=== PATIENT | female | born 1930 | race Caucasian/White ===

== ENCOUNTER 2016-12-08 06:29 | Outpatient (CLI) | payer MEDICARE, BC | END 2016-12-08 06:30 | DX: N28.9 Disorder of kidney and ureter, unspecified (principal); D64.9 Anemia, unspecified ==

== ENCOUNTER 2017-01-04 13:56 | Outpatient (CLI) | payer MEDICARE, BC | END 2017-01-04 13:57 | disposition home or self-care (01) | DX: J44.1 Chronic obstructive pulmonary disease with (acute) exacerbation (principal) ==

== ENCOUNTER 2017-01-27 14:57 | Outpatient (CLI) | payer MEDICARE, BC ==
[2017-01-27 18:07] LABS: BILIRUBIN,TOTAL 0.3 mg/dL (0.2-1.0); CREATININE 1.5 mg/dL (0.4-1.0); POTASSIUM 4.2 mmol/L (3.5-5.0); TOTAL PROTEIN 7.8 g/dL (6.7-8.2)
== END 2017-01-27 14:58 | disposition home or self-care (01) ==
LOC: LAB.F 14:57
PROVIDERS: ATTEND Internal Medicine
DX: D50.9 Iron deficiency anemia, unspecified (principal)
CPT/HCPCS: 36415; 80053

== ENCOUNTER 2017-02-28 15:03 | Outpatient (CLI) | payer MEDICARE, BC | END 2017-02-28 23:59 | disposition EMS.NT | LOC: EMS 15:03 | PROVIDERS: ATTEND Surgery | DX: R07.9 Chest pain, unspecified (principal) ==

== ENCOUNTER 2017-03-05 15:08 | Outpatient (CLI) | payer MEDICARE, BC ==
[2017-03-05 17:32] LABS: HCT - HEMATOCRIT 39.6 % (37.0-47.0); HGB - HEMOGLOBIN 12.8 g/dL (12.0-16.0); MEAN CORPUSCULAR HEMOGLOBIN 27.6 pg (27.0-31.0); MEAN CORPUSCULAR HGB CONC 32.3 g/dL (32.0-36.0); MEAN CORPUSCULAR VOLUME 85.6 fL (81.0-99.0); MEAN PLATELET VOLUME 7.7 fL (7.9-10.8); RED BLOOD COUNT 4.63 10^6/uL (4.20-5.40); RED CELL DISTRIBUTION WIDTH 15.3 % (12.0-15.0); WHITE BLOOD COUNT 5.3 x10^3/uL (4.8-10.8)
[2017-03-05 20:16] LABS: CALCIUM 9.2 mg/dL (8.5-10.3); CREATININE 1.6 mg/dL (0.4-1.0); POTASSIUM 4.2 mmol/L (3.5-5.0)
== END 2017-03-05 15:09 | disposition home or self-care (01) ==
LOC: LAB.F 15:08
PROVIDERS: ATTEND Internal Medicine Nephrology
DX: N05.9 Unspecified nephritic syndrome with unspecified morphologic changes (principal); N25.81 Secondary hyperparathyroidism of renal origin; R80.9 Proteinuria, unspecified
CPT/HCPCS: 36415; 80048; 82570; 83970; 84100; 84156

== ENCOUNTER 2017-03-08 08:00 | Outpatient (CLI) | payer MEDICARE, BC | END 2017-03-08 08:01 | disposition home or self-care (01) | LOC: LAB.R 08:00 | PROVIDERS: ATTEND Internal Medicine Nephrology | DX: N05.9 Unspecified nephritic syndrome with unspecified morphologic changes (principal); D70.9 Neutropenia, unspecified; E83.30 Disorder of phosphorus metabolism, unspecified; N25.81 Secondary hyperparathyroidism of renal origin; R80.9 Proteinuria, unspecified | CPT/HCPCS: 82570; 84156 ==

== ENCOUNTER 2017-04-23 15:09 | Outpatient (CLI) | payer MEDICARE, BC ==
[2017-04-23 17:49] LABS: HEMOGLOBIN A1C 0.53 g/dL
[2017-04-23 18:50] LABS: FOLATE > 49.60 ng/mL (5.90 - >24.8)
== END 2017-04-23 15:10 | disposition home or self-care (01) ==
LOC: LAB.F 15:09
PROVIDERS: ATTEND Physician Assistant Medical
DX: D64.9 Anemia, unspecified (principal)
CPT/HCPCS: 36415; 82607; 82746; 83036

== ENCOUNTER 2017-05-15 10:34 | Outpatient (CLI) | payer MEDICARE, BC ==
--- NOTE | 2017-05-16 00:04 | XRAY Report ---
EXAM: CHEST RADIOGRAPHY EXAM DATE: 05/15/2017 11:11 AM. CLINICAL HISTORY: New-onset of cough 3 weeks ago. COMPARISON: 07/19/2014. CT 02/26/2016.. Chest x-ray 01/24/2016. TECHNIQUE: 2 views. FINDINGS: Lungs/Pleura: There is patchy right perihilar and left infrahilar airspace opacity. There is a conflu ent density in the right upper lobe. These densities are increased since previous. There curtain supervisor ural distortion in the right lung. Mediastinum: Heart size within normal limits. There is moderate aortic arch atherosclerotic calcifica tion. There is a new left-sided Port-A-Cath with tip at mid SVC. Other: None. IMPRESSION: 1. Bilateral patchy densities which are new since previous. Uncertain if these findings represent acu te pneumonia versus malignancy or sequela of malignancy treatment given the presence of Port-A-Cath. Follow-up recommended. RACHEL Referring Provider Line: [phone] SITE ID: [id number]
== END 2017-05-15 10:35 | disposition home or self-care (01) ==
LOC: DI 10:34
PROVIDERS: ATTEND Internal Medicine
DX: J98.4 Other disorders of lung (principal); Z95.828 Presence of other vascular implants and grafts
CPT/HCPCS: 71020

== ENCOUNTER 2017-06-08 10:59 | Outpatient (CLI) | payer MEDICARE, BC | END 2017-06-08 11:00 | disposition critical access hospital (66) | LOC: EMS 10:59 | PROVIDERS: ATTEND Surgery | DX: R06.02 Shortness of breath (principal); R07.9 Chest pain, unspecified | CPT/HCPCS: A0425; A0427 ==

== ENCOUNTER 2017-06-08 11:48 | Emergency (ER) | payer MEDICARE, BC ==
--- NOTE | 2017-06-08 12:44 | ED Physician Documentation ---
History of Present Illness - Stated complaint Stated Complaint: DIFF BREATHING - Chief complaint Chief Complaint: General - History obtained from History obtained from: Patient, Family (daughter) - History of Present Illness Timing: Other (This is an 86-year-old woman with history of COPD who wears oxygen as needed, 2 L, and also a history of lung cancer status post chemotherapy and radiation last year in [place]. Last night she became acutely short of breath, she does have a nonproductive cough and chest pressure anteriorly. There is no pedal edema or calf pain, the shortness of breath is present at rest. No fevers.) Review of Systems Ten Systems: 10 systems reviewed and negative Constitutional: denies: Fever, Chills Nose: denies: Rhinorrhea / runny nose, Congestion Cardiac: reports: Chest pain / pressure. 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 : Renal insuffiency Psych: Anxiety Musculoskeletal: Osteoporosis Derm: None - Past Surgical History Past Surgical History: Yes General: Appendectomy, Bowel surgery, Colonoscopy /SWEEPING COMPOUND BLENDER: Hysterectomy, Oophrectomy - Present Medications Home Medications: Ambulatory Orders Medication Instructions Recorded Confirmed Aspirin EC [Ecotrin] 81 mg PO DAILY 01/24/13 06/08/17 Cholecalciferol (Vitamin D3) 5,000 unit PO DAILY 07/31/13 06/08/17 [Vitamin D3] LORazepam [Ativan] 0.5 mg PO BID 07/31/13 06/08/17 Tiotropium [place] [Spiriva] 18 mcg IH DAILY 07/31/13 06/08/17 Gabapentin [Neurontin] 600 mg PO TID 12/20/13 06/08/17 Ipratropium/Albuterol [Duoneb] 3 ml NEB QID 07/06/14 06/08/17 HYDROcod/ACETAM 5/325 [[place] 5/325] 1 tab ORAL TID 07/09/14 06/08/17 Multivit-Min/FA/Lycopene/Lut 1 each PO DAILY 09/07/14 06/08/17 [Centrum Silver Tablet] Cyanocobalamin (Vitamin B-12) 1 tab PO DAILY 12/30/15 06/08/17 [Vitamin B12] Bimatoprost [Lumigan] 1 drops EACHEYE DAILY 06/08/17 06/08/17 Brimonidine Tartrate/Timolol 2 drops RIGHTEYE BID 06/08/17 06/08/17 [Combigan 0.2%-0.5% Eye Drops] Levofloxacin [Levaquin] 750 mg PO DAILY #7 tablet 06/08/17 Pantoprazole [Protonix] 1 tab PO DAILY 06/08/17 06/08/17 predniSONE [Deltasone] 20 mg PO [id number] #21 tab 06/08/17 - Allergies Allergies/Adverse Reactions: Allergies Allergy/AdvReac Type Severity Reaction Status Date / Time Sulfa (Sulfonamide Allergy Rash Verified 06/08/17 12:45 Antibiotics) - Social History Does the pt smoke?: No Smoking Status: Former smoker Does the pt drink ETOH?: No Does the pt have substance abuse?: No - Family History Family history: reports: Non contributory - Immunizations Immunizations are current?: No Immunizations: TDAP >10years/unknown - POLST Patient has POLST: Yes POLST Status: Full Code PD ED PE NORMAL - Vitals Vital signs reviewed: Yes (Tachycardic) - General General: Alert and oriented X 3, No acute distress, Other (Some short-term memory issues) - HEENT HEENT: PERRL, EOMI - Neck Neck: Supple, no meningeal sign, No bony TTP - Cardiac Cardiac: Other (Tachycardic but regular without murmur) - Respiratory Respiratory: Other (Quite diminished on the right side) - Abdomen Abdomen: Soft, Non tender - Back Back: No CVA TTP, No spinal TTP - Derm Derm: Normal color, Warm and dry - Extremities Extremities: No edema, No calf tenderness / cord - Neuro Neuro: case loader operator 2-12 intact, Normal speech - Psych Psych: Normal mood, Normal affect Results - Vitals Vitals: Vital Signs - 24 hr 06/08/17 06/08/17 06/08/17 11:58 13:31 14:53 Temperature 37.0 C 36.9 C Heart Rate 125 H 103 H 104 H Respiratory 21 18 18 Rate Blood Pressure 145/67 H 126/43 L 126/43 L O2 Saturation 92 98 99 Oxygen O2 Source Nasal cannula - EKG (time done) 1205 Rate: Rate (enter#) (119) Rhythm: Sinus tachycardia [place]: Normal Ischemia: Q waves (V1/2). No: ST elevation c/w ischemia Computer interpretation: Agree with computer - Labs Labs: Laboratory Tests 06/08/17 06/08/17 06/08/17 13:13 13:13 13:13 WBC 11.2 H RBC 4.47 Hgb 12.1 Hct 37.7 MCV 84.2 MCH 27.0 MCHC 32.0 RDW 13.8 Plt Count 194 MPV 7.3 L Neut # 10.0 H Lymph # 0.4 L [place] # 0.7 Eos # 0.0 Baso # 0.0 Absolute Nucleated RBC 0.01 Nucleated RBC % 0.1 Sodium 137 Potassium 4.4 Chloride 100 L Carbon Dioxide 27 Anion Gap 10.0 BUN 27 H Creatinine 1.3 H Estimated GFR (MDRD) 39 L Glucose 166 H Lactic Acid Calcium 8.6 Total Bilirubin 0.4 AST 14 ALT 13 Alkaline Phosphatase 61 Troponin I < 0.04 B-Natriuretic Peptide Total Protein 6.6 L Albumin 3.5 Globulin 3.1 Albumin/Globulin Ratio 1.1 Lipase 17 L 06/08/17 06/08/17 13:13 13:13 WBC RBC Hgb Hct MCV MCH MCHC RDW Plt Count MPV Neut # Lymph # [place] # Eos # Baso # Absolute Nucleated RBC Nucleated RBC % Sodium Potassium Chloride Carbon Dioxide Anion Gap BUN Creatinine Estimated GFR (MDRD) Glucose Lactic Acid 1.6 Calcium Total Bilirubin AST ALT Alkaline Phosphatase Troponin I B-Natriuretic Peptide 139 H Total Protein Albumin Globulin Albumin/Globulin Ratio Lipase - Rads (name of study) 2v chest Radiology: EMP read contemporaneously (Enlarging R sided pleural effusion with compressive atalectasis. Increasing perihilar masses.) CTA Chest Radiology: EMP read contemporaneously (No PE, she has extensive right-sided endobronchial densities with airway obstruction with right upper lobe collapse, volume loss and nodularity in the right lung may reflect pneumonia, atelectasis , or malignancy, there is a very small right pleural effusion.) PD MEDICAL DECISION MAKING - ED course ED course: 86-year-old woman presents with an acute dyspnea, probably a postobstructive pneumonia from underlying malignant process as seen on CT. I spoke by phone with her aluminum shingle roofer, Dr. Sweeney, Who recommends steroids and antibiotics and to follow-up with her medical oncologist. Departure - Departure Disposition: 01 Home, Self Care Clinical Impression: Obstructive pneumonia Condition: Good Record reviewed to determine appropriate education?: Yes Instructions: Pneumonia Dc Prescriptions: Levofloxacin [Levaquin] 750 mg PO DAILY #7 tablet predniSONE [Deltasone] 20 mg PO [id number] #21 tab Comments: Follow-up with your oncologist, Dr. Avalos. Call him today for an appointment. Return if worse.
--- NOTE | 2017-06-08 12:59 | XRAY Report ---
EXAM: CHEST RADIOGRAPHY EXAM DATE: 06/08/2017 12:30 PM. CLINICAL HISTORY: Diff breathing. COMPARISON: None. TECHNIQUE: 2 views. FINDINGS: Lungs/Pleura: Increasing right-sided pleural effusion layering over the apex of the right lung. Scarr ing and volume loss with upward retraction of the right hemidiaphragm redemonstrated and similar to t he prior examination. Irregular densities in the right perihilar station are redemonstrated and more conspicuous than on the prior chest radiograph dated 05/15/2017 but seen to much better advantage on the chest CT dated 02/26/2016. The left lung remains well-aerated and clear. Mediastinum: Heart and mediastinal contours are unremarkable. Other: Left-sided Port-A-Cath is redemonstrated and similar. IMPRESSION: 1. Enlarging right-sided pleural effusion layering along the right lung apex with likely associated c ompressive atelectasis. A chest CT with contrast may be of benefit to further characterize this new f inding. 2. The previously seen lesions in the right perihilar station on the chest CT dated 02/26/2016 are mo re conspicuous on today's examination than on the prior chest radiograph dated 05/15/2017. 3. The left lung remains well aerated and clear. [facility] Referring Provider Line: [phone] SITE ID: [id number]
[2017-06-08 13:25] LABS: BASOPHILS % (AUTO) 0.3 %; EOSINOPHILS % (AUTO) 0.1 %; HCT - HEMATOCRIT 37.7 % (37.0-47.0); HGB - HEMOGLOBIN 12.1 g/dL (12.0-16.0); LYMPHOCYTES # (AUTO) 0.4 10^3/uL (1.5-3.5); MEAN CORPUSCULAR VOLUME 84.2 fL (81.0-99.0); MEAN PLATELET VOLUME 7.3 fL (7.9-10.8); MONOCYTES # (AUTO) 0.7 10^3/uL (0.0-1.0); MONOCYTES % (AUTO) 6.1 %; NEUTROPHILS % (AUTO) 89.5 %; NUCLEATED RED BLOOD CELLS AUTO 0.1 /100WBC; RED BLOOD COUNT 4.47 10^6/uL (4.20-5.40); RED CELL DISTRIBUTION WIDTH 13.8 % (12.0-15.0); UNCORRECTED WHITE BLOOD COUNT 11.2 x10^3/uL; WHITE BLOOD COUNT 11.2 x10^3/uL (4.8-10.8)
[2017-06-08 13:39] LABS: ALBUMIN/GLOBULIN RATIO 1.1 (1.0-2.2); BILIRUBIN,TOTAL 0.4 mg/dL (0.2-1.0); CALCIUM 8.6 mg/dL (8.5-10.3); CREATININE 1.3 mg/dL (0.4-1.0); POTASSIUM 4.4 mmol/L (3.5-5.0); TOTAL PROTEIN 6.6 g/dL (6.7-8.2)
[2017-06-08] MEDS ORDERED: IOPAMIDOL-300 50 ML VIAL ONE (13:52)
[2017-06-08] MEDS ORDERED: IOPAMIDOL-300 50 ML VIAL PO ONE (14:19)
--- NOTE | 2017-06-08 14:45 | CT Preliminary Report ---
Exam: CT CHEST ANGIO (PE) IMPRESSION: 1. Negative for acute pulmonary embolism. 2. Extensive right sided endobronchial densities with airway obstruction. Significant right upper lob e collapse. Volume loss and nodularity in the right lung may reflect pneumonia, atelectasis, or malig antonina. 3. Very small right pleural effusion. [facility] SITE ID: [id number]
--- NOTE | 2017-06-08 14:47 | CT Report ---
EXAM: CT ANGIOGRAM CHEST EXAM DATE: 06/08/2017 02:19 PM. CLINICAL HISTORY: Dyspnea. COMPARISON: 02/26/2016. TECHNIQUE: Routine helical imaging was performed through the chest in the pulmonary arterial phase. I V Contrast: 40 cc Isovue-300 IV. Reconstructions: Coronal 3-D MIP reconstructions.Sagittal and ordaz l. In accordance with CT protocol optimization, one or more of the following dose reduction techniques w ere utilized for this exam: automated exposure control, adjustment of mA and/or KV based on patient s ize, or use of iterative reconstructive technique. FINDINGS: Pulmonary Arteries: Diagnostic quality: Adequate through the segmental arteries. Negative for acute pulmonary embolism. T here is moderate motion artifact through the upper lung zones. Lungs/Pleura: There are extensive endobronchial densities within the right-sided airways. The right u pper lobe, middle lobe and right lower lobe airways appear partially obstructed by endobronchial dens ities. There is consolidation and collapse of much of the right upper lobe. There is patchy peribronc hial vascular consolidation with spiculation in the right middle lobe. There is peripheral airspace d ensity in the lingula which appears without significant interval change. There is a very small right- sided pleural effusion. Mediastinum: Heart size is normal. There is moderate thoracic aorta atherosclerotic calcification. Th ere are coronary artery calcifications. Thoracic Aorta: No aneurysm or dissection. Upper Abdomen: Unremarkable. Other: None. IMPRESSION: 1. Negative for acute pulmonary embolism. 2. Extensive right sided endobronchial densities with airway obstruction. Significant right upper lob e collapse. Volume loss and nodularity in the right lung may reflect pneumonia, atelectasis, or malig antonina. 3. Very small right pleural effusion. [facility] Referring Provider Line: [phone] SITE ID: [id number]
[2017-06-08] MEDS ORDERED: levoFLOXacin 250 MG TABLET PO STA (15:09)
[2017-06-08] MEDS ORDERED: predniSONE 20 MG TABLET PO STA (15:09)
[2017-06-08] MEDS ORDERED: predniSONE 20 MG TABLET ONE (15:28)
[2017-06-08] MEDS ORDERED: levoFLOXacin 250 MG TABLET ONE (15:28)
[2017-06-08 15:29] VITALS: BP 129/49
== END 2017-06-08 15:40 | disposition home or self-care (01) ==
LOC: ED 11:48
DX: J18.8 Other pneumonia, unspecified organism (principal); J44.9 Chronic obstructive pulmonary disease, unspecified; Z99.81 Dependence on supplemental oxygen; I10 Essential (primary) hypertension; Z85.118 Personal history of other malignant neoplasm of bronchus and lung; E11.9 Type 2 diabetes mellitus without complications; E78.00 Pure hypercholesterolemia, unspecified; M81.0 Age-related osteoporosis without current pathological fracture; N28.9 Disorder of kidney and ureter, unspecified; Z79.82 Long term (current) use of aspirin; Z87.891 Personal history of nicotine dependence
CPT/HCPCS: 36415; 71020; 71275; 80053; 83605; 83690; 83880; 84484; 85025; 93005; 99284; A9270; J7512; Q9967

== ENCOUNTER 2017-06-20 00:40 | Outpatient (CLI) | payer MEDICARE, BC | END 2017-06-20 00:41 | disposition critical access hospital (66) | LOC: EMS 00:40 | PROVIDERS: ATTEND Surgery | DX: R07.9 Chest pain, unspecified (principal); R06.02 Shortness of breath; R53.1 Weakness | CPT/HCPCS: A0425; A0427 ==

== ENCOUNTER 2017-06-20 01:05 | Emergency (ER) | payer MEDICARE, BC ==
[2017-06-20] MEDS ORDERED: IPRATROPIUM/ALBUTEROL 3 ML NEB INH STA (01:30)
[2017-06-20] MEDS ORDERED: SODIUM CHLORIDE 0.9% 1,000 ML IV ONE (01:31)
[2017-06-20] MEDS ORDERED: IPRATROPIUM/ALBUTEROL 3 ML NEB INH ONE (01:45)
[2017-06-20 02:01] LABS: BASOPHILS % (AUTO) 0.5 %; EOSINOPHILS # (AUTO) 0.2 10^3/uL (0.0-0.7); EOSINOPHILS % (AUTO) 2.5 %; HCT - HEMATOCRIT 39.1 % (37.0-47.0); HGB - HEMOGLOBIN 12.7 g/dL (12.0-16.0); LYMPHOCYTES # (AUTO) 1.1 10^3/uL (1.5-3.5); LYMPHOCYTES % (AUTO) 11.3 %; MEAN CORPUSCULAR HEMOGLOBIN 27.6 pg (27.0-31.0); MEAN CORPUSCULAR HGB CONC 32.6 g/dL (32.0-36.0); MEAN CORPUSCULAR VOLUME 84.8 fL (81.0-99.0); MONOCYTES # (AUTO) 0.9 10^3/uL (0.0-1.0); MONOCYTES % (AUTO) 9.3 %; NEUTROPHILS # (AUTO) 7.3 10^3/uL (1.5-6.6); NEUTROPHILS % (AUTO) 76.4 %; RED BLOOD COUNT 4.61 10^6/uL (4.20-5.40); UNCORRECTED WHITE BLOOD COUNT 9.5 x10^3/uL; WHITE BLOOD COUNT 9.5 x10^3/uL (4.8-10.8)
[2017-06-20 02:05] LABS: BILIRUBIN,TOTAL 0.8 mg/dL (0.2-1.0); CALCIUM 8.8 mg/dL (8.5-10.3); CREATININE 1.5 mg/dL (0.4-1.0); POTASSIUM 4.6 mmol/L (3.5-5.0); TOTAL PROTEIN 6.5 g/dL (6.7-8.2)
[2017-06-20 02:06] LABS: PT - PROTHROMBIN TIME 11.6 secs (9.9-12.6)
[2017-06-20 02:08] LABS: BILIRUBIN,URINE NEGATIVE (NEGATIVE)
[2017-06-20 02:13] LABS: PARTIAL THROMBOPLASTIN TIME 23.1 secs (24.9-33.3)
[2017-06-20 02:16] LABS: UA w/ MICROSCOPIC CHARGE YES; WBC,URINE 0-3 /HPF (0-5)
[2017-06-20 02:17] LABS: UR CULTURE IF IND INDICATED
--- NOTE | 2017-06-20 03:21 | CT Report ---
EXAM: CT CHEST EXAM DATE: 06/20/2017 03:04 AM. CLINICAL HISTORY: Cough, chest pain. COMPARISONS: 06/08/2017. TECHNIQUE: Routine helical CT imaging was performed through the chest. IV contrast: None. Reconstruct ions: Coronal and sagittal. In accordance with CT protocol optimization, one or more of the following dose reduction techniques w ere utilized for this exam: automated exposure control, adjustment of mA and/or KV based on patient s ize, or use of iterative reconstructive technique. FINDINGS: Lungs/Pleura: Again seen is collapse of most of the right upper lobe with bronchial occlusion. Areas of opacity and spiculation in the right middle lobe and right lower lobe are also unchanged. Small fo naty opacity in the lingula is unchanged. No pneumothorax is seen. Small right pleural effusion has la rgely resolved. Mediastinum: Heart size is normal. Trace pericardial fluid, decreased from the prior CT. Coronary art sofi calcifications. Normal-sized mediastinal lymph nodes. Moderate atherosclerosis. Ascending aorta m easures 3.4 cm. Bones: Osteopenia. Mild vertebral body fracture at T5 which is new compared with the prior CT. Verteb ral body fracture at T7 is unchanged. Visualized Abdomen: Solitary left kidney. Other: None. IMPRESSION: 1. Persistent collapse of most of the right upper lobe with occlusion of the bronchus. 2. Focal areas of opacity and spiculation in the right middle lobe and right lower lobe are similar c ompared with the prior exam and could represent atelectasis, infiltrate, or malignancy. 3. Small focal opacity in the lingula is unchanged. 4. Coronary artery calcifications. 5. Mild upper endplate fracture at T5 appears to be new compared with 06/08/2017. [facility] Referring Provider Line: [phone] SITE ID: [id number]
--- NOTE | 2017-06-20 03:39 | ED Physician Documentation ---
PD HPI DYSPNEA - Stated complaint Stated Complaint: CHEST PN - Chief complaint Chief Complaint: Cardiac - History obtained from History obtained from: Patient, Family, EMS - History of Present Illness Timing - onset: Today Timing - onset during: Rest Timing - details: Gradual onset, Still present Inciting event(s): No: Out of meds Improved by: O2, Inhaler/neb, Steroids Associated symptoms: Cough, Wheezing, Chest pain / discomfort Similar symptoms before: Work up / diagnostics, Treatment Recently seen: Emergency Dept, Admitted - Additional information Additional information: Patient is an 86 year old female with a history of kidney ca, lung ca and copd who is presenting to the emergency department for chest pain and shortness of breath. Patient states that it started this evening and she thought that she needed to burp. Patient had recently been admitted for pneumonia. Patient had chemotherapy last about 8-9 months ago but currently is not getting any more treatment. Family has not made a polst form but patient states that she does not want to be intubated and doesn't think she want to be resuscitated but needs to talk to her daughters. Review of Systems Constitutional: denies: Fever, Chills Eyes: reports: Reviewed and negative Ears: denies: Ear pain, Drainage/discharge Nose: denies: Congestion Throat: reports: Reviewed and negative Cardiac: reports: Chest pain / pressure. denies: Pedal edema, Calf pain Respiratory: reports: Dyspnea, Cough, Wheezing GI: denies: Abdominal Pain, Nausea, Vomiting, Constipation, Diarrhea : reports: Reviewed and negative Skin: denies: Rash, Lesions Musculoskeletal: reports: Back pain Neurologic: reports: Generalized weakness. 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 : Renal insuffiency Psych: Anxiety Musculoskeletal: Osteoporosis Derm: None - Past Surgical History Past Surgical History: Yes General: Appendectomy, Bowel surgery, Colonoscopy /CAMERA PROTOTYPING ENGINEER: Hysterectomy, Oophrectomy - Present Medications Home Medications: Ambulatory Orders Medication Instructions Recorded Confirmed Aspirin EC [Ecotrin] 81 mg PO DAILY 01/24/13 06/20/17 Cholecalciferol (Vitamin D3) 5,000 unit PO DAILY 07/31/13 06/20/17 [Vitamin D3] LORazepam [Ativan] 0.5 mg PO BID 07/31/13 06/20/17 Gabapentin [Neurontin] 600 mg PO TID 12/20/13 06/20/17 Ipratropium/Albuterol [Duoneb] 3 ml NEB QID 07/06/14 06/20/17 HYDROcod/ACETAM 5/325 [[place] 5/325] 1 tab ORAL TID 07/09/14 06/20/17 Multivit-Min/FA/Lycopene/Lut 1 each PO DAILY 09/07/14 06/20/17 [Centrum Silver Tablet] Cyanocobalamin (Vitamin B-12) 1 tab PO DAILY 12/30/15 06/20/17 [Vitamin B12] Bimatoprost [Lumigan] 1 drops EACHEYE DAILY 06/08/17 06/20/17 Brimonidine Tartrate/Timolol 2 drops RIGHTEYE BID 06/08/17 06/20/17 [Combigan 0.2%-0.5% Eye Drops] Pantoprazole [Protonix] 1 tab PO DAILY 06/08/17 06/20/17 Albuterol Sulf [Ventolin Hfa 2 puffs IH Q4HR PRN 06/20/17 06/20/17 Inhaler] Atenolol 12.5 mg PO DAILY PRN 06/20/17 06/20/17 Escitalopram [Lexapro] 1 tab PO DAILY 06/20/17 06/20/17 - Allergies Allergies/Adverse Reactions: Allergies Allergy/AdvReac Type Severity Reaction Status Date / Time Sulfa (Sulfonamide Allergy Rash Verified 06/20/17 01:37 Antibiotics) - Social History Does the pt smoke?: No Smoking Status: Never smoker Does the pt drink ETOH?: No Does the pt have substance abuse?: No - Immunizations Immunizations are current?: No Immunizations: TDAP >10years/unknown - POLST Patient has POLST: Yes POLST Status: Full Code PD ED PE NORMAL - Vitals Vital signs reviewed: Yes - General General: Alert and oriented X 3 - HEENT HEENT: Atraumatic, PERRL - Neck Neck: Supple, no meningeal sign, No JVD - Cardiac Cardiac: RRR - Abdomen Abdomen: Soft, Non distended - Derm Derm: Normal color - Extremities Extremities: No deformity, No calf tenderness / cord - Neuro Neuro: Alert and oriented X 3, No motor deficit, No sensory deficit, Normal speech PD ED PE EXPANDED - General General: Alert, Other (mild respiratory distress) - HEENT HEENT: Dry mucous membranes, Dental decay - Respiratory Respiratory: Wheezing, Rhonchi, Right upper lobe, Right middle lobe, Right lower lobe, Left upper lobe, Left lower lobe - Back Back: Normal ROM, Vertebral tenderness Results - Vitals Vitals: Vital Signs - 24 hr 06/20/17 06/20/17 06/20/17 01:06 01:47 01:50 Temperature 36.2 C L Heart Rate 108 H 90 88 Respiratory 26 H 21 22 Rate Blood Pressure 96/52 L 126/62 Blood Pressure 106/56 L [Left] O2 Saturation 94 99 06/20/17 06/20/17 02:47 03:05 Temperature Heart Rate 93 91 Respiratory 23 14 Rate Blood Pressure 107/62 101/49 L Blood Pressure [Left] O2 Saturation 99 97 Oxygen O2 Source Nasal cannula Oxygen Flow Rate 2 - EKG (time done) 0115 Rate: Rate (enter#) (98) Rhythm: NSR [place]: LAD QRS: Normal Ischemia: Non specific changes Compare to prior EKG: Other (unchanged except for III) - Labs Labs: Laboratory Tests 06/20/17 06/20/17 06/20/17 01:45 01:45 01:45 WBC 9.5 RBC 4.61 Hgb 12.7 Hct 39.1 MCV 84.8 MCH 27.6 MCHC 32.6 RDW 14.0 Plt Count 204 MPV 7.0 L Neut # 7.3 H Lymph # 1.1 L [place] # 0.9 Eos # 0.2 Baso # 0.0 Absolute Nucleated RBC 0.00 Nucleated RBC % 0.0 PT 11.6 INR 1.0 APTT 23.1 L Sodium 133 L Potassium 4.6 Chloride 94 L Carbon Dioxide 30 Anion Gap 9.0 BUN 27 H Creatinine 1.5 H Estimated GFR (MDRD) 33 L Glucose 108 H Lactic Acid Calcium 8.8 Total Bilirubin 0.8 AST 12 ALT 12 Alkaline Phosphatase 50 Troponin I B-Natriuretic Peptide Total Protein 6.5 L Albumin 3.2 Globulin 3.3 Albumin/Globulin Ratio 1.0 Lipase 16 L Urine Color Urine Clarity Urine pH Ur Specific [place] Urine Protein Urine Glucose (UA) Urine Ketones Urine Occult Blood Urine Nitrite Urine Bilirubin Urine Urobilinogen Ur Leukocyte Esterase Urine RBC Urine WBC Ur Squamous Epith Cells Urine Bacteria Ur Microscopic Review Urine Culture Comments 06/20/17 06/20/17 06/20/17 01:45 01:45 01:45 WBC RBC Hgb Hct MCV MCH MCHC RDW Plt Count MPV Neut # Lymph # [place] # Eos # Baso # Absolute Nucleated RBC Nucleated RBC % PT INR APTT Sodium Potassium Chloride Carbon Dioxide Anion Gap BUN Creatinine Estimated GFR (MDRD) Glucose Lactic Acid 0.9 Calcium Total Bilirubin AST ALT Alkaline Phosphatase Troponin I < 0.04 B-Natriuretic Peptide 30 Total Protein Albumin Globulin Albumin/Globulin Ratio Lipase Urine Color Urine Clarity Urine pH Ur Specific [place] Urine Protein Urine Glucose (UA) Urine Ketones Urine Occult Blood Urine Nitrite Urine Bilirubin Urine Urobilinogen Ur Leukocyte Esterase Urine RBC Urine WBC Ur Squamous Epith Cells Urine Bacteria Ur Microscopic Review Urine Culture Comments 06/20/17 02:00 WBC RBC Hgb Hct MCV MCH MCHC RDW Plt Count MPV Neut # Lymph # [place] # Eos # Baso # Absolute Nucleated RBC Nucleated RBC % PT INR APTT Sodium Potassium Chloride Carbon Dioxide Anion Gap BUN Creatinine Estimated GFR (MDRD) Glucose Lactic Acid Calcium Total Bilirubin AST ALT Alkaline Phosphatase Troponin I B-Natriuretic Peptide Total Protein Albumin Globulin Albumin/Globulin Ratio Lipase Urine Color YELLOW Urine Clarity CLEAR Urine pH 6.0 Ur Specific [place] <=1.005 Urine Protein NEGATIVE Urine Glucose (UA) NEGATIVE Urine Ketones NEGATIVE Urine Occult Blood TRACE-INTA Urine Nitrite NEGATIVE Urine Bilirubin NEGATIVE Urine Urobilinogen 0.2 (NORMAL) Ur Leukocyte Esterase TRACE H Urine RBC 0-5 Urine WBC 0-3 Ur Squamous Epith Cells RARE Squamous Urine Bacteria None Seen Ur Microscopic Review INDICATED Urine Culture Comments INDICATED - Rads (name of study) ct chest Radiology: Final report received, See rad report (only new findings possible fracture of T5) PD MEDICAL DECISION MAKING - ED course Complexity details: reviewed old records, reviewed results, re-evaluated patient , considered differential, d/w patient, d/w family ED course: Patient was seen and examined at bedside. Patient was placed on a monitor and treated with supplemental oxygen. iv access was gained and labs were drawn. ekg was performed and showed no acute ischemic changes. Patient was treated with three duonebs and imaging was ordered. originally PE study was ordered but patient had a negative study done less than a month ago, and only had one kidney so the risks outweighed the benefits. Patient stated that she was feeling much better. Patient was sent for imaging. When patient returned from imaging the results were reviewed by relatively unchanged. While patient was moderate risk for cardiovascular disease the patient and daughter stated that they wanted to go home. they would not a stress test or a cath and really didnt want further work up. Patient was discharged home. Departure - Departure Disposition: 01 Home, Self Care Clinical Impression: Dyspnea, COPD (chronic obstructive pulmonary disease), Lung cancer Condition: Stable Instructions: COPD Dc Follow-Up: primary,care provider [Other] - Within 3 Days Comments: Your diagnostics today were unchanged compared to previous exams. You symptoms are like an exacerbation of your underlying disorders. The symptoms you are experiencing are unlikely to improve and you will be living this way indefinitely. In acute exacerbations you can increase the frequency of your nebulizer treatments. It is important that you put in writing your end of life wishes. You may return to the emergency department at any time for new, worsening or uncontrollable symptoms.
[2017-06-20 04:15] VITALS: BP 122/64
== END 2017-06-20 04:10 | disposition home or self-care (01) ==
LOC: EDUNIT# → ED 01:05
DX: J44.9 Chronic obstructive pulmonary disease, unspecified (principal); C34.90 Malignant neoplasm of unspecified part of unspecified bronchus or lung; Z85.528 Personal history of other malignant neoplasm of kidney; I10 Essential (primary) hypertension; E11.9 Type 2 diabetes mellitus without complications; K21.9 Gastro-esophageal reflux disease without esophagitis; M81.0 Age-related osteoporosis without current pathological fracture; N28.9 Disorder of kidney and ureter, unspecified; Z79.82 Long term (current) use of aspirin
CPT/HCPCS: 36415; 71250; 80053; 81001; 83605; 83690; 83880; 84484; 85025; 85610; 85730; 87040; 87086; 93005; 94640; 96361; 96374; 99285; J7620; 81003

== ENCOUNTER 2017-06-25 15:15 | Outpatient (CLI) | payer MEDICARE, BC ==
--- NOTE | 2017-06-25 18:48 | CONSULTATION NOTE ---
Palliative Care Consultation - Referral Time of Visit: 5912-6029 Referral setting: Home Referral Reason: Lung Cancer - Information Sources Records reviewed: Previous records reviewed History/Review of Systems obtained from: Patient, Family Exam limitations: Clinical condition - History of Present Illness Brief History of Present Illness: This is a na 86-year-old woman with original diagnosis of lung cancer confirmed in March 2016 of adenocarcinoma. She originally presented to her PCP in January 2016 for excessive fatigue and ongoing weakness. She has since received concurrent chemotherapy and radiation for which she finished in July 2017. She has underlying COPD, at baseline is short of breath. She has been oxygen dependent since January 2017. Her functional status has declined over the year, her daughter Jamila moved in with her in December 2011 to provide support after her had . Because of her increasing care needs Denise her other daughter, has also moved in to provide support. He [place] have [place] and as 2 sons who are not currently involved in her life. She has had significant decline over the last month, including presenting to the emergency room department on 1009 with a new diagnosis of pneumonia. At that point in time they did identify extensive right-sided endobronchial densities with airway obstruction. She had presented with significant right upper lobe collapse which has caused her significant increased respiratory distress and dyspnea. She had improved somewhat but definitely not back to baseline and presented again on 06-20-2017 showing again persistent collapse of her right upper lobe with occlusion of the bronchus with suspicion of malignancy but given the ambiguity of also could be atelectasis or infiltrate. She also presented this last time with a mild upper endplate fracture of the T5. She had met with her PCP Krystle Wells PA-C, and the discussion had been made to transition to hospice. They are wanting to confirm with both her knockout man and oncologist, there is nothing else to offer before they make that transition. In the context of this, she is admitted to palliative care today, to assist with advanced care planning and symptom management. Patient is found to be in significant respiratory distress, with any kind of movement or activity she does have increased respiratory effort, she has been using her DuoNeb's about 6 times a day, she receives some but not much relief with this. Am not surprised with this as it is most likely mechanical in nature regarding her collapsed lung. She has significant fatigue, she has been sleeping probably 7075% of 24 hours, she has been eating and drinking but her appetite is decreased. She does have severe pain not only at that T5 spot but radiating to her right lung and chest area. She has a baseline peripheral vascular disease and peripheral neuropathy. She also admits to increasing short -term memory issues and noted cognitive decline though is alert and oriented 3. She does defer frequently though to her daughter's for information and recall. Medical/Surgical History - Past Medical History Cardiovascular: reports: Hypertension Respiratory: reports: COPD, Pneumonia, Shortness of breath, Other (chronic 02 use) Neuro: reports: Peripheral neuropathy, Tremors Endocrine/Autoimmune: reports: Type 2 diabetes GI: reports: GERD CARGO BROKER: reports: None : reports: Incontinence, Renal insuffiency HEENT: reports: Glaucoma, Macular degeneration Psych: reports: Anxiety Musculoskeletal: reports: Osteoporosis Derm: reports: None MRSA Hx?: No - Past Surgical History General: reports: Appendectomy, Bowel surgery (history of colon cancer 2002), Colonoscopy /CARGO BROKER: reports: Hysterectomy, Oophrectomy Cardiovascular: reports: Other (nephrectomy right for renal cancer; Stage III kidney disease) HEENT: reports: Cataracts - Substance History Use: Uses substance without health or social issues: Tobacco (history of smoking ), Alcohol (history of alcholol use) Social History - Living Situation Living arrangement: At home Living Situation: With family Support System: Lives with daughter Jamila Bridges who is main caregiver, Denise Hylton lives in basement and provides support but is currently in school, [place], estranged from 2 sons. since 2010 Family History - Family History Family History: Mother: (both of lung cancer), Father: Medications/Allergies - Medications Home Medications: Ambulatory Orders Medication Instructions Recorded Confirmed Aspirin EC [Ecotrin] 81 mg PO DAILY 01/24/13 06/25/17 Cholecalciferol (Vitamin D3) 6,000 unit PO DAILY 07/31/13 06/27/17 [Vitamin D3] LORazepam [Ativan] 0.5 mg PO BID 07/31/13 06/25/17 Gabapentin [Neurontin] 600 mg PO TID 12/20/13 06/27/17 Ipratropium/Albuterol [Duoneb] 3 ml NEB Q4HR 07/06/14 06/25/17 Cyanocobalamin (Vitamin B-12) 1,000 tab PO DAILY 12/30/15 06/27/17 [Vitamin B12] Bimatoprost [Lumigan] 1 drops EACHEYE DAILY 06/08/17 06/25/17 Brimonidine Tartrate/Timolol 2 drops RIGHTEYE BID 06/08/17 06/25/17 [Combigan 0.2%-0.5% Eye Drops] Pantoprazole [Protonix] 40 mg PO DAILY 06/08/17 06/25/17 Albuterol Sulf [Ventolin Hfa 2 puffs IH Q4HR PRN 06/20/17 06/25/17 Inhaler] Atenolol 12.5 mg PO DAILY PRN 06/20/17 06/25/17 Escitalopram [Lexapro] 10 mg PO DAILY 06/20/17 06/25/17 Morphine Sulfate [Morphine Sulf 5 mg PO Q3HR PRN 06/25/17 06/25/17 Oral (Roxanol)] Polyethylene Glycol 3350 [Miralax] 17 gm PO DAILY 06/25/17 06/25/17 Sennosides [Senna] 2 tab PO DAILY PRN 06/25/17 06/25/17 Aspirin 81 mg PO DAILY 06/27/17 06/27/17 Fluticasone [Flonase] 1 spray INH BID 06/27/17 06/27/17 Olodaterol HCl [Striverdi Respimat] 2 puffs INH DAILY 06/27/17 06/27/17 Vit A/Vit C/Vit E/Zinc/Copper 1 cap PO BID 06/27/17 06/27/17 [Preservision Areds Softgel] - Allergies Allergies/Adverse Reactions: Allergies Allergy/AdvReac Type Severity Reaction Status Date / Time Sulfa (Sulfonamide Allergy Rash Verified 06/20/17 01:37 Antibiotics) Review of Systems - Constitutional Constitutional: reports: Fatigue, Poor appetite, Weight loss - Eyes Eyes: reports: Vision loss - Ears, Nose & Throat Ears, Nose & Throat: reports: Hearing loss, Postnasal drainage, Dry mouth - Cardiovascular Cardiovascular: reports: Chest pain, Exertional dyspnea, Decr. exercise tolerance - Respiratory Respiratory: reports: Cough (nonproductive), SOB at rest, SOB with exertion, Other (only can lay on side to sleep) - Gastrointestinal Gastrointestinal: reports: Constipation, Early satiety - Genitourinary Genitourinary: reports: Urgency, Incontinence (mild; wears pad) - Musculoskeletal Musculoskeletal: reports: Back pain, Stiffness, Muscle weakness, Assistive devices (uses rolling walker), Transfer issues (needs contact assist for sit to stand) - Integumentary Integumentary: reports: Dryness - Psychiatric Psychiatric: reports: Depression, Anxiety - Endocrine Endocrine: reports: Diabetes type 2 - Hematologic/Lymphatic Hematologic/Lymphatic: reports: Recurrent infections (recently treated for pneumonia) - All Other Systems All Other Systems: reports: Reviewed and negative Physical Exam - Vital Signs Temperature: 97.9 C Pulse Rate: 93 Respiratory Rate: 22 O2 Saturation: 95 (rest on 2 liters) Blood Pressure: 108/62 - Physical Exam General Appearance: positive: Moderate distress, Lethargic Eyes Bilateral: positive: Conjunctivae nml ENT: positive: No signs of dehydration Neck: positive: No JVD, Trachea midline. negative: Lymphadenopathy (R), Lymphadenopathy (L) Cardiovascular: positive: Regular rate & rhythm, Tachycardia Respiratory: positive: Other (no breathes sounds right lobe; left diminished but clear, no BS in base) Abdomen: positive: Non-tender, Soft, Nml bowel sounds Skin: positive: Pallor, Dryness Extremities: positive: No pedal edema Neurologic/Psychiatric: positive: Oriented x3, Other (appears very fatigued; deferred most questions to daughters but did cooperate and attend to exam) Palliative Care - POLST Patient has POLST: Yes POLST Status: DNR, Limited Interventions (determine the use of AB with comfort as goal; no medical nutrition) Pain: Pain worsening, Location (midthoracic area; right chest area), Pattern ( fairly persistant; worse with twisting or movement) Tiredness/Fatigue: Severe (7-10) Drowsiness/Sedation: Mild (1-3) Nausea: None Depression: Moderate (4-6) Anxiety: Moderate (4-6) Dyspnea: Severe (7-10) (noted with any activity and at rest with conversation) Sleep: Variable sleep pattern Constipation: Yes, Opoid induced, Unmanaged Feelings of wellbeing/Perceived Quality of Life: Poor, Worsening Performance Status: Patient needing assistance from sit to stand from couch, contact assist for ambulation, pacing of activities because of dyspnea. Has been able to bathe with daughters assist. Dependent on others for management of meals and household tasks. Spends most of her time laying on couch, has at baseline been fairly sedentary but this has worsened over the last few weeks. I would put her at a PPS of 40%. - Palliative Care Discussion: Patient and daughters do perceive the seriousness of the illness, they are bigger picture goal is to support mother at home, including at end of life to transition to hospice. Given their perception of the rate of decline, and concern there may be other palliative measures, prior to making this decision they would like to have input from the knockout man's visit is scheduled for . Given the severity of her illness, and likelihood for interaction again with emergent services, we did discuss at length the [facility], patient recognized at the time of her demise, she would like to allow natural . We did discuss at length between options of comfort measures versus limited interventions, again patient does not want to be artificially supported including ventilatory support. But at this point, are open to palliative care measures, treating pneumonias, and hospitalization for reversible causes. The patient does express a wish at end of life to be at home. Discussed the role of hospice, hospice criteria, and advantages to signing on early versus late. I do believe they have a better understanding, that transition at this point. Counseling to normalize the feelings of distress, grief, and provided anticipatory guidance. Impression and Recommendations - Palliative Care Impression: This is an 86-year-old woman with non-small cell lung cancer originally diagnosed at stage IIIa, with treatment of radiation and concurrent chemotherapy. Suspect she has progression of disease, given her symptom burden , CT findings, and ongoing both functional and cognitive decline. Patient and daughter is coming to realization of the seriousness of her illness and implications for future decision making. Will provide ongoing palliative care support until transition to hospice occurs. Recommendations/Counseling Done: 1. Dyspnea related to right upper lobe lung collapse. Patient is using DuoNeb about every 4 hours, with just mild relief. Suspect it is addressing her underlying COPD but not the mechanical mechanism of her dyspnea. Prescription provided and teaching and instruction including counseling for use of morphine sulfate 20 mg per male at 5 mg every 2 hours as needed shortness of breath or dyspnea. Written instructions and rationale given as well as precautions. Patient may also use for her acute pain in her back and lower extremity neuropathy. She has been on hydrocodone, so she is not opioid abner. 2. Constipation opioid induced poorly controlled. Instructed to discontinue to cassette sodium, and initiate MiraLAX 17 g daily up to twice daily, reviewed the principles of "mush" and the senna 2 tabs every 2-3 days if no bowel movement the "push". Daughter is able to reflect back instructions and will obtain medications. 3. Anxiety, multifactorial in origin. I suspect her underlying breathlessness , uncertain if situation, and ongoing decline continues to play into this. She has underlying anxiety disorder already on Lorazepam 0.5 mg twice daily, we did discuss and instruction to use this more often if anxup to every 6 hours if anxiety becomes overwhelming, and considered a "tools" and there toolbox. 4. Non-small cell lung cancer, recurrent disease. Patient and daughters wanting further confirmation from their knockout man and oncologist, regarding any further treatment plans that may extend not only her quantity of life but improve her quality of life. Reviewed weighing benefits and burdens in the context of her goals and current functional status. 4. Advanced care planning. Discussed at length the need for a identified the DPOA, Document not available specifically to review has been most recently updated. Given simplified form with order of daughter's to be identified, patient felt this would be more simple as well as daughters would appreciate defined roles. [facility] and goals also defined, education and counseling on hospice done, as well as anticipatory guidance provided. I am concerned, patient's decline will continued fairly rapidly, and the need to establish adequate support and home may need to be somewhat fast tract. Agreed to continue support with palliative care. Time Spent: 90 minutes spent with face to face counseling regarding symptom management, goals of care, completing the POLST, and providing anticipatory guidance.
== END 2017-06-25 15:16 | disposition home or self-care (01) ==
LOC: PC 15:15
PROVIDERS: ATTEND Nurse Practitioner Adult Health
DX: Z51.5 Encounter for palliative care (principal); J98.19 Other pulmonary collapse; J44.9 Chronic obstructive pulmonary disease, unspecified; M54.6 Pain in thoracic spine; T40.2X5A Adverse effect of other opioids, initial encounter; K59.03 Drug induced constipation; F41.9 Anxiety disorder, unspecified; C34.90 Malignant neoplasm of unspecified part of unspecified bronchus or lung; E11.42 Type 2 diabetes mellitus with diabetic polyneuropathy; E11.51 Type 2 diabetes mellitus with diabetic peripheral angiopathy without gangrene; E11.22 Type 2 diabetes mellitus with diabetic chronic kidney disease; I12.9 Hypertensive chronic kidney disease with stage 1 through stage 4 chronic kidney disease, or unspecified chronic kidney disease; N18.3 Chronic kidney disease, stage 3 (moderate); K21.9 Gastro-esophageal reflux disease without esophagitis; Z87.01 Personal history of pneumonia (recurrent); Z99.81 Dependence on supplemental oxygen; Z85.038 Personal history of other malignant neoplasm of large intestine; Z85.528 Personal history of other malignant neoplasm of kidney; Z87.891 Personal history of nicotine dependence; Z66 Do not resuscitate
CPT/HCPCS: 99345

== ENCOUNTER 2017-06-30 13:00 | Outpatient (CLI) | payer MEDICARE, BC ==
--- NOTE | 2017-07-01 02:55 | CONSULTATION NOTE ---
Palliative Care Follow Up - Referral Referring Provider: Krystle Wells PA-C Time of Visit: 06/30/2017 [id number] Referral setting: Home (It is a taxing considerable effort for the patient to leave the home, she has had ongoing functional decline, presents with moderate to severe breathlessness and mostly chair/bedbound) Referral Reason: Lung Cancer - Information Sources Records reviewed: Previous records reviewed History/Review of Systems obtained from: Family (All three daugthers present for visit; history supplied by Jamila and Denise rutledge) Exam limitations: Clinical condition (Patient extremely fatigued from respiratory effort; drifts in and out of visit; but addressed and answered questions appropriately in the moment; poor recall of history) - History of Present Illness Update Brief HPI Update: Please see visit of 06/25/17 for more extensive history. This is a na 86- year-old woman with recurrent adenocarcinoma of the lung. She has known right upper lobe collapse, which has caused increasing respiratory distress and dyspnea. She has continued to deteriorate and appears very fatigued today. The hope had been for her to they will follow-up with pulmonology/oncology to see if there was any thing else to offer in the context of palliative intervention. But with patient's decline, and stated goals, the decision has made to transition to hospice. Social History - Living Situation Living arrangement: At home Living Situation: With family Support System: Jamila Bridges is primary director of special education.It has been increasing difficult as patient has had increasing respiratory distress, needing more physical assistance, as well as up at night for breathing treatments and max assist for voiding. Her daughter Denise Carballo, who lives downstairs, provides caregiving 2 days a week as well. Her daughter Daniel, who is not been present over the last couple weeks is here today, and it has been a fairly rapid decline and quite overwhelming emotionally for all. 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 Medications/Allergies - Medications Home Medications: Ambulatory Orders Medication Instructions Recorded Confirmed LORazepam [Ativan] 0.5 mg PO Q4HR PRN 07/31/13 07/01/17 Gabapentin [Neurontin] 600 mg PO TID 12/20/13 06/27/17 Ipratropium/Albuterol [Duoneb] 3 - 6 ml NEB Q4HR 07/06/14 07/01/17 Bimatoprost [Lumigan] 1 drops EACHEYE DAILY 06/08/17 06/25/17 Brimonidine Tartrate/Timolol 2 drops RIGHTEYE BID 06/08/17 06/25/17 [Combigan 0.2%-0.5% Eye Drops] Pantoprazole [Protonix] 40 mg PO DAILY 06/08/17 07/01/17 Albuterol Sulf [Ventolin Hfa 2 puffs IH Q4HR PRN 06/20/17 06/25/17 Inhaler] Escitalopram [Lexapro] 5 mg PO DAILY 06/20/17 06/25/17 Morphine Sulfate [Morphine Sulf 5 mg PO Q3HR PRN 06/25/17 07/01/17 Oral (Roxanol)] Polyethylene Glycol 3350 [Miralax] 17 gm PO DAILY 06/25/17 07/01/17 Sennosides [Senna] 2 tab PO DAILY PRN 06/25/17 07/01/17 Aspirin 81 mg PO DAILY 06/27/17 06/27/17 Fluticasone [Flonase] 1 spray INH BID PRN 06/27/17 06/27/17 Ondansetron [Zuplenz] 8 mg PO Q8HR PRN 07/01/17 07/01/17 Simethicone [Gas Relief] 1 tab PO Q4HR PRN 07/01/17 07/01/17 - Allergies Allergies/Adverse Reactions: Allergies Allergy/AdvReac Type Severity Reaction Status Date / Time Sulfa (Sulfonamide Allergy Rash Verified 06/20/17 01:37 Antibiotics) Review of Systems - Constitutional Constitutional: reports: Fatigue, Poor appetite - Eyes Eyes: reports: Vision loss - Ears, Nose & Throat Ears, Nose & Throat: reports: Hearing loss, Postnasal drainage, Dry mouth - Cardiovascular Cardiovascular: reports: Exertional dyspnea, Decr. exercise tolerance, Orthopnea - Respiratory Respiratory: reports: Wheezing, SOB at rest, SOB with exertion - Gastrointestinal Gastrointestinal: reports: Constipation (bowels have moved but with significant effort; still hard), Nausea, Vomiting, Reflux/heartburn, Poor appetite, Other ( "gulping" air has severe gas bubbles;) - Genitourinary Genitourinary: reports: Urgency - Musculoskeletal Musculoskeletal: reports: Back pain, Stiffness, Muscle weakness, Assistive devices (has rolling seated front wheeled walker using as wheelchair as well), Transfer issues - Integumentary Integumentary: reports: Dryness - Neurological Neurological: reports: General weakness, Numbness (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; gabapentin has been effective in past), Memory problems - Psychiatric Psychiatric: reports: Anxiety - Endocrine Endocrine: reports: Diabetes type 2 - Hematologic/Lymphatic Hematologic/Lymphatic: reports: Recurrent infections (recent pneumonia) - All Other Systems All Other Systems: reports: Reviewed and negative Physical Exam - Vital Signs Temperature: 97.4 C Pulse Rate: 108 Respiratory Rate: 24 O2 Saturation: 96 (2l at rest) Blood Pressure: 112/54 - Physical Exam General Appearance: positive: Moderate distress, Lethargic Eyes Bilateral: positive: Normal inspection ENT: positive: Dry mucous membranes Neck: positive: Trachea midline Cardiovascular: positive: Irregular, Tachycardia Respiratory: positive: Other (right upper lobe with no air movement; right lower lobe severly diminished; left decreased throughout with occasional expiratory wheeze; appears to have mod/severe respiratory effort; some improvement and relaxed after morphine) Abdomen: positive: Soft, Nml bowel sounds Skin: positive: Pallor, Dryness Extremities: positive: Pedal edema (small amount of swelling in left ankle) Neurologic/Psychiatric: positive: Disoriented to time, Other (patient moving in and out of conversation and awareness;) Palliative Care - POLST Patient has POLST: Yes POLST Status: DNR, Comfort Measures (transitioned to comfort care) Pain: Pain worsening, Location (right upper chest and upper back; unable to give much expanded information on this; seemed more comfortable after morphine) Tiredness/Fatigue: Severe (7-10) Drowsiness/Sedation: Severe (7-10) (this has been increasing over the week; has not been sleeping well at night with respiratory effort/distress) Nausea: Mild (1-3), With vomiting (small amount today; eating less) Depression: None Anxiety: Mild (1-3) Dyspnea: Severe (7-10), Comment (using mask/nebulizzer appears "better" after 2 duonebs in row per daugthers perceptions; admit patient has difficult participating) Anorexia: Moderate (4-6) Sleep: Sleeps poorly Constipation: Yes, Opoid induced, Unmanaged Feelings of wellbeing/Perceived Quality of Life: Poor, Worsening Performance Status: Patient functional and cognitive status is continued decline over the week, she is being rolled to the bathroom on her front wheeled walker, is only able to take a few steps at this time. Both daughters feel patient most likely would not tolerate bathing, arrangements were made for home health aide tomorrow for bed bath. I will put the patient at a PPS of 40% today - Palliative Care Discussion: Family conference convened with all 3 daughters present, patient intermittently awake to participate in conversation. Able to acknowledge patient's continued to decline, or appropriately tearful and saddened, all are in agreement focus is to relieve suffering and focus on comfort. Given patient's previously stated goals last week, which was a end-of-life to be at home with family and focus on comfort, all 3 were in agreement for hospice transition. Did include patient in conversation regarding pending decline, goals to focus on comfort, obtaining a hospital bed and equipment as well as hospice support. Patient does present with awareness, and agreement of plan. Up dated [address] was completed with stated goals. Daughters are contacting other family members and friends, did review she was changing fairly quickly. Impression and Recommendations - Palliative Care Impression: This is a na 86-year-old woman has continued to deteriorate both functionally and cognitively over this last week. Her respiratory distress and effort related to her right upper lobe occlusion most likely attributed to recurrent disease, has continued to progress, she is quite fatigued, and decision has been made to focus on comfort and transition to hospice. Recommendations/Counseling Done: 1. Dyspnea. Patient does have known underlying advanced COPD, her respiratory effort and dyspnea is attributed mostly though to her right upper lobe collapse , she is being managed with DuoNeb's 2 at a time every 4 hours, but most responsive actually to the morphine. Her O2 sats have remained above 90% and 96 % on 2 liters at time of visit, she does not present with any signs or symptoms of recurrent pneumonia but expect continued progression to respiratory failure.Counseled to continue to use the morphine, they also can use increased lorazepam to every four horurs, other than scheduled BID, particularly in nighttime to assist with managing nighttime distress.I suspect with patient's ongoing fatigue may not be able to use duo nebs much longer and will be more dependent on the morphine for managing end-of-life symptoms. 2. Nausea and vomiting. Counseled as possible to try and make sure she has something in her stomach previous to morphine dosing. She is in the context of her respiratory distress coping quite a bit of air, and does have a lot of gas. They are using Gas-X with some success. She though has had an episode of vomiting. Prescription provided for ondansetron 4 mg every 8 hours as needed. Discontinued nonessesential medications, decreased SSRI to taper as suspect will not be able to swallow medications soon, inst. to continue gabapentin up until that time. 3. Constipation, opioid induced. Have had some success using the senna 2 tabs but with great amount of effort. Stool is still somewhat hard, instructed to add MiraLAX for softening. 4. Non-small cell lung cancer, recurrent disease. Recognizing patient's decline, Jamila very disappointed unable to get further information are options from pulmonology and or oncology given her mother's fragile status and decline, decision made to focus on comfort and transition to hospice to assist in meeting these goals. 5. Advanced care planning. Family conference convened, all in agreement goal is to keep patient at home, hospital bed ordered as well as supporting equipment to be able to care for patient in the front room of her own home. She is a na view of [facility]. Patient was included in the conversation regarding transition to hospice, her expected continued decline and limited life expectancy, and actually seemed somewhat accepting of this. Contact made with hospice to facilitate urgent referral and acquire appropriate equipment to manage patient's care. Time Spent: Time spent 75 minutes with greater than 50% of this done in counseling regardingEstablished and goals of care and review of symptom management. Coordination of care with hospice for transition as well as obtaining equipment. To provide hard choices for loving people as a resource.
== END 2017-06-30 13:01 | disposition home or self-care (01) ==
LOC: PC 13:00
PROVIDERS: ATTEND Nurse Practitioner Adult Health
DX: Z51.5 Encounter for palliative care (principal); C34.90 Malignant neoplasm of unspecified part of unspecified bronchus or lung; J98.19 Other pulmonary collapse; R11.2 Nausea with vomiting, unspecified; K59.03 Drug induced constipation; T40.2X5A Adverse effect of other opioids, initial encounter; J44.9 Chronic obstructive pulmonary disease, unspecified; E11.42 Type 2 diabetes mellitus with diabetic polyneuropathy; Z87.01 Personal history of pneumonia (recurrent); Z66 Do not resuscitate; Z74.01 Bed confinement status; Z79.891 Long term (current) use of opiate analgesic
CPT/HCPCS: 99350